=== PATIENT | male | born 2000 | race Caucasian/White ===

== ENCOUNTER 2022-07-05 21:27 | Emergency (ER) | payer OTHER, BC ==
[2022-07-05] MEDS: HYDROmorphone 1 MG/ML Syringe SUBCUT ONE (22:22)
[2022-07-05 22:44] VITALS: BP 150/84; PULSE 82
== END 2022-07-05 23:01 | disposition home or self-care (01) ==
LOC: VM.ED 21:27
DX: S09.90XA Unspecified injury of head, initial encounter (principal); S13.4XXA Sprain of ligaments of cervical spine, initial encounter; J45.909 Unspecified asthma, uncomplicated; V57.5XXA Driver of pick-up truck or van injured in collision with fixed or stationary object in traffic accident, initial encounter; Y92.410 Unspecified street and highway as the place of occurrence of the external cause
CPT/HCPCS: 70450; 71045; 72125; 72128; 73590-RT; 96372; 99284; J1170